=== PATIENT | female | born 1990 | race Caucasian/White ===

== ENCOUNTER 2018-02-11 23:14 | Emergency (ER) | payer OTHER ==
[~2018-02-11] VITALS: Ht 160 cm; Wt 82.0 kg
[2018-02-11 23:48] VITALS: BP 118/70
== END 2018-02-12 03:05 | disposition left against medical advice (07) ==
LOC: ER 02-12 01:13
DX: Z53.21 Procedure and treatment not carried out due to patient leaving prior to being seen by health care provider (principal)
CPT/HCPCS: 93005

== ENCOUNTER 2019-05-21 10:45 | Observation (INO) | payer MEDICAID, OTHER ==
[~2019-05-21] VITALS: Ht 160 cm; Wt 93.9 kg
[2019-05-21] MEDS ORDERED: PNV1TABL76 MT (13:42)
== END 2019-05-21 13:30 | disposition home or self-care (01) ==
LOC: 8 EST LDRP 10:45
PROVIDERS: ADMIT Obstetrics & Gynecology; ATTEND Obstetrics & Gynecology
DX: O36.8130 Decreased fetal movements, third trimester, not applicable or unspecified (principal); Z3A.35 35 weeks gestation of pregnancy
CPT/HCPCS: 82962; 99281; G0378